=== PATIENT | female | born 1950 | race Caucasian/White ===

== ENCOUNTER 2024-11-23 10:22 | Emergency (ER) | payer OTHER, SELFPAY ==
[2024-11-23 10:29] VITALS: BP 148/93
[2024-11-23] MEDS: TYLENOL 650 MG PO (11:34)
--- NOTE | 2024-11-23 11:37 | ED.MUSCINJ ---
HPI-Injury
General
Chief Complaint: Fall
Source: patient
Exam Limitations: none
Time Seen by Provider: 11/23/24 11:16
History of Present Illness-Injury
Initial Injury comments:
74-year-old female [id number] with history of dementia presents with right wrist pain after a fall she sustained overnight. She tripped over a walker and put her hand out to stop her fall. She notes pain and swelling. No other
complaints. She did not hit her head
Phy Exam
Physical Exam
Physical Exam:
General: Well-appearing female no acute respiratory distress
Musculoskeletal exam: Right wrist is swollen and tender over the radiocarpal joint. No deformity. Able to flex and extend the wrist.
Skin is intact without laceration
Injury Course
Orders/Labs/Results
Orders:
Orders
11/23/24 10:33
CR Wrist - Right Min 3 Views Urgent
Comment:
Reason For Exam: Fall on outstretched hand
11/23/24 11:33
Acetaminophen [Tylenol] 650 mg .ROUTE .STK-MED ONE
11/23/24 11:34
Acetaminophen [Tylenol] 650 mg PO NOW STA
11/23/24 11:35
Acetaminophen [Tylenol] 650 mg PO NOW STA
MDM/Problems Addressed
Differential Diagnosis Includes:
Right wrist pain or dislocation. Suspect underlying sprain. Will place a splint. Will advise follow-up with orthopedics if symptoms persist for possible occult fracture
*Pulse Oximetry
SaO2: 93
Oxygen Mode of Delivery: Room air
Patient hypoxic: no
*Critical Care Note
Total Time (30-74mins, 75-104mins- exclusive of procedures): Not Applicable
ED Attending Note
-
Portions of this chart may have been created with voice recognition software.� Occasional wrong word or��sound alike� substitutions may have occurred due to the inherent limitations of voice recognition software.
Discharge Plan
Departure
Patient Disposition: Home (Routine Discharge)
Date of Disposition: 11/23/24
Time of Disposition: 11:39
Patient with high blood pressure during this ER visit?: No
Discharge Problem:
Right wrist sprain
Instructions: Muscle, joint, and bone pain - Discharge instructions
Referrals:
Chiki Millan MD [Active, Orthopedics]
Activity Restrictions/Additional Instructions:
Use splint for support. You may ice for swelling. Continue with ibuprofen or Tylenol for pain. Follow-up with orthopedic doctor for recheck for possible occult fracture
Discharge Date and Time
Print Language: URDU
== END 2024-11-23 12:17 | disposition home or self-care (01) ==
LOC: EMR 10:22
PROVIDERS: EMERGENCY PHYSICIAN Emergency Medicine; FAMILY PHYSICIAN Family Medicine
DX: S63.501A Unspecified sprain of right wrist, initial encounter (principal); W01.0XXA Fall on same level from slipping, tripping and stumbling without subsequent striking against object, initial encounter
CPT/HCPCS: 99283; 29125; 73110